=== PATIENT | female | born 1985 | race Caucasian/White ===

== ENCOUNTER 2023-01-21 13:20 | Emergency (ER) | payer OTHER, SELFPAY ==
[2023-01-21] VITALS (20 sets, daily range): BP systolic 101–146; BP diastolic 57–97; PULSE 86–130; RESP 12–20; TEMP 36.3; O2SAT 94–100
--- NOTE | 2023-01-21 14:50 | ED.HA ---
HPI - Headache General Chief Complaint: Headache Stated Complaint: ferguson, dehydration Time Seen by Provider: 01/21/23 13:31 Source: patient Mode of arrival: ambulatory Limitations: no limitations History of Present Illness HPI Narrative: Patient is a 37 y/o female who presents to the ED with report of nausea, vomiting, headache. Patient reports she woke up around 6 AM this morning and did not feel well. She reported having nausea upon waking as well as a frontal headache. Symptoms have since persisted. Patient has been unable to keep down any pain medication for the headache. She denies history of migraines. Denies any sick contacts or bad food exposure. Does report having photophobia and phonophobia, as well as lightheadedness with standing. She feels very weak and dehydrated. Denies any fever, neck pain, vision changes, passing out, abdominal pain, weakness of arm or leg, confusion, slurred speech, cough or cold symptoms. Patient is currently in-town visiting from [place]. Related Data Allergies Allergy/AdvReac Type Severity Reaction Status Date / Time No Known Allergies Allergy Verified 01/21/23 13:37 Review of Systems Review of Systems: CONSTITUTIONAL: Denies fever, chills, or sweats. EYES: Denies visual changes. ENT: Denies rhinorrhea, congestion, sore throat. CARDIOVASCULAR: Denies chest pain, palpitations, or edema. RESPIRATORY: Denies cough or dyspnea. GASTROINTESTINAL: See HPI. GENITOURINARY: Denies dysuria or hematuria. SKIN: Denies rash or itching. MUSCULOSKELETAL: See HPI. NEUROLOGIC: See HPI. All systems reviewed & are unremarkable except as noted in HPI and below PMFSH Past Medical History Medical History (Updated 01/21/23 @ 16:40 by Dawn Medina PA-C) No pertinent past medical history Surgical History Surgical History (Updated 01/21/23 @ 15:29 by Dawn Medina PA-C) No pertinent past surgical history Social History Social History (Updated 01/21/23 @ 15:30 by Dawn Medina PA-C) Smoking status: Never smoker Exam Narrative: GENERAL: Well appearing, thin, non-toxic, in no acute distress. HEAD: Normocephalic, atraumatic. EYES: PERRLA/EOMI, conjunctiva clear. ENT: MMs dry. NECK: Supple. No adenopathy, no masses. No meningeal signs. RESPIRATORY: Airway patent, respirations nonlabored. Clear to auscultation bilaterally, no rales, rhonchi, wheezing. CARDIOVASCULAR: Borderline tachycardic with regular rhythm without murmurs, rubs, or gallops. Radial pulses 2+ and equal bilaterally. ABDOMINAL: Soft, no significant tenderness throughout abdomen, nondistended, no hepatosplenomegaly. Normoactive BS. MUSCULOSKELETAL: Moves all extremities. Strength/ROM intact without gross deformities. SKIN: Warm, dry, normal color. No rashes. NEURO: A&O X3. Speech clear. Cranial nerves II-XII grossly intact. Steady gait. No ataxic movements. No focal deficits. PSYCHIATRIC: Appropriate mood and affect. Normal interaction. Course Vital Signs Vital signs: Vital Signs Temperature 97.4 F L 01/21/23 13:22 Pulse Rate 112 H 01/21/23 13:22 Respiratory Rate 20 01/21/23 13:22 Blood Pressure 128/81 01/21/23 13:22 Pulse Oximetry 100 01/21/23 13:22 Oxygen Delivery Room Air 01/21/23 13:22 Temperature 97.4 F L 01/21/23 13:22 Pulse Rate 109 H 01/21/23 16:46 Respiratory Rate 18 01/21/23 16:16 Blood Pressure 103/90 01/21/23 16:46 Pulse Oximetry 98 01/21/23 16:46 Oxygen Delivery Room Air 01/21/23 13:22 MDM - Headache MDM Narrative Medical decision making narrative: Patient presents ED with headache, nausea, vomiting. Initially tachycardic upon arrival, likely related to dehydration. Patient's headache was not sudden in onset or maximal in severity. There are no focal neurological deficits on exam. Subarachnoid hemorrhage is felt to be unlikely at this time. There is no history of fever and neck is supple on evaluation without meningeal sign
[2023-01-21] MEDS: SODIUM CHLORIDE 0.9% IV 1,000 ML 999 ML IV CONT (15:02)
[2023-01-21] MEDS: KETOROLAC 30 MG/ML VIAL (*BKC) IV PUSH (15:04)
[2023-01-21] MEDS: METOCLOPRAMIDE HCL INJ 10 MG/2 ML VIAL IV PUSH (15:06)
[2023-01-21] MEDS: diphenhydrAMINE HCl INJ 50 MG/ML VIAL 25 MG IV PUSH (15:13)
[2023-01-21] MEDS: FAMOTIDINE 20 MG/2 ML VIAL IV PUSH (15:17)
== END 2023-01-21 17:00 | disposition home or self-care (01) ==
PROVIDERS: Emergency Provider Physician Assistant
DX: R51.9 Headache, unspecified (principal); R11.2 Nausea with vomiting, unspecified; E86.0 Dehydration
CPT/HCPCS: 96365; 96375; 99284; J0131; J1100; J1200; J1885; J2765; J7030